=== PATIENT | female | born 1975 | race Two or more races ===

== ENCOUNTER 2019-01-21 13:45 | Inpatient (IN) | payer OTHER ==
[~2019-01-21] VITALS: Ht 165.1 cm; Wt 65.3 kg
[2019-01-24] MEDS ORDERED: PROPRANOLOL HCL20 MG PO (08:07)
[2019-01-27] MEDS ORDERED: CODE1TAB37 PO (11:54)
[2019-01-27] MEDS ORDERED: IBUPROFEN800 MG PO (11:54)
[2019-01-27] MEDS ORDERED: FAMOTIDINE20 MG PO (11:55)
== END 2019-01-27 12:43 | disposition home or self-care (01) | DRG 743 ==
LOC: SURG-SUITE 01-24 06:36 → O/R 01-24 06:36 → OB/GYN 01-24 08:30 → SURG-SUITE 01-24 11:23 → OB/GYN 01-24 13:45 → SURG-SUITE 01-27 12:43
PROVIDERS: ADMIT Obstetrics & Gynecology
PROC: 0TJB8ZZ Inspection of Bladder, Via Natural or Artificial Opening Endoscopic (ICD-10-PCS; 2019-01-24)
PROC: 0UT90ZZ Resection of Uterus, Open Approach (ICD-10-PCS; principal; 2019-01-24 08:30)
DX: D25.1 Intramural leiomyoma of uterus (principal); N73.6 Female pelvic peritoneal adhesions (postinfective); N72 Inflammatory disease of cervix uteri; N92.0 Excessive and frequent menstruation with regular cycle